=== PATIENT | male | born 1960 | race Caucasian/White ===

== ENCOUNTER 2017-12-23 16:01 | Emergency (ER) | payer MEDICAID ==
[~2017-12-23] VITALS: Ht 172.7 cm; Wt 78.0 kg
[2017-12-23 16:06] VITALS: BP 120/79
== END 2017-12-23 17:44 | disposition left against medical advice (07) ==
LOC: ER 16:02
DX: K13.70 Unspecified lesions of oral mucosa (principal); Z53.21 Procedure and treatment not carried out due to patient leaving prior to being seen by health care provider

== ENCOUNTER 2018-03-24 05:42 | Emergency (ER) | payer MEDICAID ==
[~2018-03-24] VITALS: Ht 172.7 cm; Wt 70.7 kg
[2018-03-24 05:48] VITALS: BP 148/94
== END 2018-03-24 06:13 | disposition left against medical advice (07) ==
LOC: ER 05:42
DX: L02.413 Cutaneous abscess of right upper limb (principal); Z53.21 Procedure and treatment not carried out due to patient leaving prior to being seen by health care provider

== ENCOUNTER 2019-05-28 13:16 | Emergency (ER) | payer MEDICAID ==
[~2019-05-28] VITALS: Ht 172.7 cm; Wt 63.5 kg
[2019-05-28 13:22] VITALS: BP 148/92
[2019-05-28] MEDS ORDERED: LIDOcaine/epinephrine TOPICAL 5 ML BTL TOP ONE (13:55)
[2019-05-28] MEDS ORDERED: TETanus/Pertussis (Acell)/Diphther VAC/PF (Tdap-Adult) 0.5ml syringe IM ONE (13:55)
[2019-05-28] MEDS ORDERED: bacitracin 15gm ointment TP ONE (13:55)
[2019-05-28] MEDS ORDERED: AMOX-419 PO (15:13)
== END 2019-05-28 15:36 ==
LOC: ER 13:16
DX: S01.81XA Laceration without foreign body of other part of head, initial encounter (principal); F12.90 Cannabis use, unspecified, uncomplicated; Z88.8 Allergy status to other drugs, medicaments and biological substances; W01.198A Fall on same level from slipping, tripping and stumbling with subsequent striking against other object, initial encounter; Y93.89 Activity, other specified; Y92.89 Other specified places as the place of occurrence of the external cause; Y99.9 Unspecified external cause status
CPT/HCPCS: 12011; 70450; 99284

== ENCOUNTER 2020-01-30 11:21 | Emergency (ER) | payer MEDICAID ==
[~2020-01-30] VITALS: Ht 172.7 cm; Wt 72.7 kg
[2020-01-30 11:46] VITALS: BP 149/92
[2020-01-30] MEDS ORDERED: CEPH500C5 PO (13:09)
[2020-01-30] MEDS ORDERED: SULF1TAB49 PO (13:09)
[2020-01-30] MEDS ORDERED: CefTRIAXone 1000mg IM Kit (w/lidocaine diluent) IM ONE (13:10)
== END 2020-01-30 13:43 | disposition home or self-care (01) ==
LOC: ER 11:21
DX: L02.416 Cutaneous abscess of left lower limb (principal); L02.415 Cutaneous abscess of right lower limb; L02.413 Cutaneous abscess of right upper limb; L02.414 Cutaneous abscess of left upper limb; F41.9 Anxiety disorder, unspecified; F32.9 Major depressive disorder, single episode, unspecified; F17.200 Nicotine dependence, unspecified, uncomplicated; F12.90 Cannabis use, unspecified, uncomplicated; Z98.890 Other specified postprocedural states; Z60.2 Problems related to living alone; Z59.0 Homelessness; Z56.0 Unemployment, unspecified; Z88.8 Allergy status to other drugs, medicaments and biological substances; Z79.2 Long term (current) use of antibiotics
CPT/HCPCS: 96372; 99283; J0696

== ENCOUNTER 2020-07-21 01:14 | Emergency (ER) | payer MEDICAID ==
[~2020-07-21] VITALS: Ht 170.2 cm; Wt 72.2 kg
[2020-07-21 01:20] VITALS: BP 142/80
[2020-07-21] MEDS ORDERED: cephalexin 500mg capsule PO ONE (02:05)
[2020-07-21] MEDS ORDERED: sulfamethoxazole/trimethoprim DS (800/160mg) tablet PO ONE (02:05)
[2020-07-21] MEDS ORDERED: SULF1TAB49 PO (02:14)
[2020-07-21] MEDS ORDERED: CEPH500C5 PO (02:14)
== END 2020-07-21 02:33 | disposition home or self-care (01) ==
LOC: ER 01:14
DX: S90.511A Abrasion, right ankle, initial encounter (principal); L03.115 Cellulitis of right lower limb; F17.210 Nicotine dependence, cigarettes, uncomplicated; F17.200 Nicotine dependence, unspecified, uncomplicated; F41.9 Anxiety disorder, unspecified; F32.9 Major depressive disorder, single episode, unspecified; F12.90 Cannabis use, unspecified, uncomplicated; F15.90 Other stimulant use, unspecified, uncomplicated; Z72.89 Other problems related to lifestyle; Z59.0 Homelessness; Z60.2 Problems related to living alone; Z56.0 Unemployment, unspecified; Z88.8 Allergy status to other drugs, medicaments and biological substances; Z79.899 Other long term (current) drug therapy; X58.XXXA Exposure to other specified factors, initial encounter; Y93.89 Activity, other specified; Y92.89 Other specified places as the place of occurrence of the external cause; Y99.8 Other external cause status
CPT/HCPCS: 76882; 99284

== ENCOUNTER 2024-04-22 10:56 | Outpatient (CLI) | payer MEDICAID | END 2024-04-22 23:59 | disposition home or self-care (01) | LOC: RAD 10:56 | PROVIDERS: ATTEND Physician Assistant | DX: Z12.2 Encounter for screening for malignant neoplasm of respiratory organs (principal); M47.23 Other spondylosis with radiculopathy, cervicothoracic region; F17.210 Nicotine dependence, cigarettes, uncomplicated | CPT/HCPCS: 71271; 72040 ==

== ENCOUNTER 2024-05-19 13:18 | Outpatient (CLI) | payer MEDICAID | END 2024-05-19 23:59 | disposition home or self-care (01) | LOC: MRI 13:18 | PROVIDERS: ATTEND Physician Assistant | DX: M47.22 Other spondylosis with radiculopathy, cervical region (principal); M48.03 Spinal stenosis, cervicothoracic region | CPT/HCPCS: 72141 ==